=== PATIENT | male | born 1995 | race African-American/Black ===

== ENCOUNTER 2018-02-14 09:20 | Emergency (ER) | payer OTHER ==
[2018-02-14] MEDS: ONDANSETRON 4 MG ORAL DISINTEGRATING TAB (Q0162 PER 1MG) PO (10:00)
[2018-02-14] MEDS: IBUPROFEN 600 MG TAB PO (10:01)
[2018-02-14] MEDS: ACETAMINOPHEN 325 MG TAB PO (10:01)
== END 2018-02-14 10:50 | disposition home or self-care (01) ==
LOC: M ED 09:20
DX: J02.9 Acute pharyngitis, unspecified (principal); R50.9 Fever, unspecified; R11.2 Nausea with vomiting, unspecified
CPT/HCPCS: Q0162